=== PATIENT | female | born 1985 | race African-American/Black ===

== ENCOUNTER 2019-03-24 13:29 | Emergency (ER) | payer BC, MEDICAID ==
[~2019-03-24] VITALS: Ht 170.2 cm; Wt 106.0 kg
[2019-03-24] MEDS ORDERED: IBUPROFEN 600MG TABLET PO ONE (17:15)
[2019-03-24] MEDS ORDERED: FLUORESCEIN SODIUM 1MG/STRIP LEFTEYE ONE (17:15)
[2019-03-24] MEDS ORDERED: TETRACAINE 0.5% OPHTH DROPS 4ML LEFTEYE ONE (17:15)
[2019-03-24 19:11] VITALS: BP 143/89
== END 2019-03-24 19:12 | disposition home or self-care (01) ==
LOC: ER 16:04
DX: H10.023 Other mucopurulent conjunctivitis, bilateral (principal); R21 Rash and other nonspecific skin eruption
CPT/HCPCS: 81025; 99283